=== PATIENT | male | born 1995 | race Caucasian/White ===

== ENCOUNTER → 2021-09-07 | Outpatient (CLI) | payer OTHER | LOC: MHCPAIN 12:22 | DX: M47.817 Spondylosis without myelopathy or radiculopathy, lumbosacral region (principal); M54.50 Low back pain, unspecified; M53.3 Sacrococcygeal disorders, not elsewhere classified | CPT/HCPCS: G0463 ==

== ENCOUNTER → 2021-09-23 | Outpatient (CLI) | payer OTHER | LOC: COL.RAD 12:00 | DX: M51.36 Other intervertebral disc degeneration, lumbar region (principal); M51.37 Other intervertebral disc degeneration, lumbosacral region ==

== ENCOUNTER → 2021-09-23 | Outpatient (CLI) | payer OTHER | LOC: MHCPAIN 12:12 | DX: M47.816 Spondylosis without myelopathy or radiculopathy, lumbar region (principal); M54.50 Low back pain, unspecified; M53.3 Sacrococcygeal disorders, not elsewhere classified | CPT/HCPCS: J0690; Q9967 ==